=== PATIENT | male | born 2000 | race Caucasian/White ===

== ENCOUNTER 2021-10-04 17:58 | Emergency (ER) | payer OTHER | END 2021-10-04 20:55 | disposition home or self-care (01) | LOC: ER1 17:58 | DX: R04.2 Hemoptysis (principal); R05.9 Cough, unspecified; Z20.822 Contact with and (suspected) exposure to COVID-19; J02.9 Acute pharyngitis, unspecified | CPT/HCPCS: 0240U; 71045; 87081; 87880; 99283 ==